=== PATIENT | female | born 1990 | race Caucasian/White ===

== ENCOUNTER 2019-03-05 19:18 | Emergency (ER) | payer OTHER ==
[~2019-03-05] VITALS: Ht 170.2 cm; Wt 122.5 kg
[~2019-03-05 19:18] MED LIST: ACET325 PO; ALBU90I INH; ALBU90OI INH; ALBU90OI61 INH; ALPR.5; ALPR1 PO; AMOCLA875 PO; AMOX500 PO; ANTOXYBENA BOTHEARS; AZIT250 PO; BENZ100A PO; BUPR150T2 PO; CEFP200 PO; CEPH500 PO; CHOL10002 PO; CIPR500 PO; CIPRSO AD; CLIN150 PO; CLIN300 PO; CODGUAEL PO; Cipro500 MG PO; Ciprodex Otic7.5 ML BOTHEARS; DULOXETINE HCL20 MG PO; ENOX120I SQ; ERYT.5TO OD; FLUT.05NI; FOLI1 PO; GABA300 PO; HYDACE10 PO; HYDACE10B PO; HYDACE5 PO; HYDR1TAB94 PO; IBUP200 PO; IBUP400 PO; IBUP600 PO; IBUP800 PO; LEVFLO500 PO; LORA1 PO; MECL25 PO; MEDR150I IM; META800 PO; METO10 PO; NEOPOLHCSU OT; OMEP20ER PO; ONDA4 PO; ONDA4ODT MM; ONDA8ODT MM; OXYACE5T PO; PARO20 PO; PARO30 PO; PENVK250 PO; PENVK500 PO; PHENA100 PO; PHENA200 PO; PRED20 PO; PREN-16 PO; PROACE100 PO; PROC10 PO; PROCODE120 PO; PROM25 PO; PSEU30 PO; Pepcid40 MG PO; Pyridium200 MG PO; RANI150 PO; RXALBOI INH; RXCLIN PO; RXHYD5325 PO; RXHYDACE PO; RXNEOPOLHC AD; RXONDA4ODT MM; RXOXYACE PO; RXPROCODSY PO; RXPROM25 PO; RXPROM25S PR; SULI200 PO; SULTRIDS PO; TRAM50; TRAM50 PO; TRAZ100 PO; Ultram50 MG PO; VENL37.5ER PO; Xanax0.5 MG PO; Zofran Odt4 MG SL; Zofran Odt8 MG SL; Zofran4 MG PO; [UNRECOGNIZED DRUG - REMARK]
[2019-03-05] MEDS ORDERED: HYDR1TAB94 PO (20:42)
== END 2019-03-05 21:03 | disposition home or self-care (01) ==
LOC: ER 19:18
DX: S62.525A Nondisplaced fracture of distal phalanx of left thumb, initial encounter for closed fracture (principal); W22.8XXA Striking against or struck by other objects, initial encounter; Z88.8 Allergy status to other drugs, medicaments and biological substances; Z88.0 Allergy status to penicillin; Z79.899 Other long term (current) drug therapy
CPT/HCPCS: 29125; 73130; 99283-25; A9270

== ENCOUNTER 2019-03-25 21:10 | Emergency (ER) | payer OTHER ==
[~2019-03-25] VITALS: Ht 165.1 cm; Wt 117.9 kg
[2019-03-26] MEDS ORDERED: Norco 5-325 Ta1 EACH PO (00:39)
== END 2019-03-26 01:15 | disposition home or self-care (01) ==
LOC: ER 21:10
DX: S62.522D Displaced fracture of distal phalanx of left thumb, subsequent encounter for fracture with routine healing (principal); X58.XXXD Exposure to other specified factors, subsequent encounter; Z88.8 Allergy status to other drugs, medicaments and biological substances; Z88.0 Allergy status to penicillin; Z79.899 Other long term (current) drug therapy
CPT/HCPCS: 29125; 73140; 96372-59; 99283-25; A9270; J1885

== ENCOUNTER → 2020-05-16 | Outpatient (CLI) | payer OTHER ==
[~2020-05-16] MED LIST changes: +Norco 5-325 Ta1 EACH PO
== END ==
LOC: LAB SRC 13:45 → LAB SHORT 13:45 → LAB 13:45
DX: H60.91 Unspecified otitis externa, right ear (principal); H62.41 Otitis externa in other diseases classified elsewhere, right ear; B36.9 Superficial mycosis, unspecified
CPT/HCPCS: 87070; 87205

== ENCOUNTER 2021-11-18 16:54 | Emergency (ER) | payer OTHER ==
[~2021-11-18] VITALS: Ht 165.1 cm; Wt 136.1 kg
[2021-11-18] MEDS ORDERED: BUPRENORPHN-NA1 EAC2 SL (17:05)
[2021-11-18] MEDS ORDERED: IBU800 M1 PO (17:05)
[2021-11-18] MEDS ORDERED: CRUTCH4 XX (19:59)
[2021-11-18 21:32] LABS: Influenza A, PCR NEGATIVE (NEGATIVE); Influenza B, PCR NEGATIVE (NEGATIVE); Resp Syncytial Virus, PCR NEGATIVE (NEGATIVE); SARS-Cov-2 (COVID-19) PCR, MMC NEGATIVE (NEGATIVE)
== END 2021-11-18 20:27 | disposition home or self-care (01) ==
LOC: ER 16:54
PROVIDERS: Physician Assistant
DX: S82.891A Other fracture of right lower leg, initial encounter for closed fracture (principal); S82.831A Other fracture of upper and lower end of right fibula, initial encounter for closed fracture; Z88.8 Allergy status to other drugs, medicaments and biological substances; Z79.899 Other long term (current) drug therapy; W18.30XA Fall on same level, unspecified, initial encounter
CPT/HCPCS: 0241U; 27810; 36415; 73590; 73600; 73610; 73700; 96374-59; 99152; 99284-25; A9270; J1885; J2405; J2704; J7030

== ENCOUNTER 2021-11-24 13:35 | Day surgery (SDC) | payer OTHER ==
[~2021-11-24] VITALS: Ht 165.1 cm; Wt 136.3 kg
[~2021-11-24 13:35] MED LIST changes: +BUPRENORPHN-NA1 EAC2 SL; +CRUTCH4 XX; +IBU800 M1 PO
[2021-11-24] MEDS ORDERED: OXYC5 (13:58)
--- NOTE | 2021-11-24 15:05 | NUR ---
11/24/21 1505 Leonard Anderson 0.15MG EPI ADDED TO 30 ML'S 0.5% BUPIVACAINE TO ACHIEVE SOLUTION OF 1:200,000.
== END 2021-11-24 17:00 | disposition home or self-care (01) ==
LOC: ORSCSDS 13:35
PROVIDERS: Podiatrist Foot & Ankle Surgery
PROC: 0QSJ04Z Reposition Right Fibula with Internal Fixation Device, Open Approach (ICD-10-PCS; principal; 2021-11-24 15:30)
PROC: 0MQQ0ZZ Repair Right Ankle Bursa and Ligament, Open Approach (ICD-10-PCS; principal; 2021-11-24 15:30)
PROC: 0SSF04Z Reposition Right Ankle Joint with Internal Fixation Device, Open Approach (ICD-10-PCS; principal; 2021-11-24 15:30)
DX: S82.61XA Displaced fracture of lateral malleolus of right fibula, initial encounter for closed fracture (principal); S93.421A Sprain of deltoid ligament of right ankle, initial encounter; S93.431A Sprain of tibiofibular ligament of right ankle, initial encounter; Z79.899 Other long term (current) drug therapy; K21.9 Gastro-esophageal reflux disease without esophagitis; E66.01 Morbid (severe) obesity due to excess calories; Z68.42 Body mass index [BMI] 45.0-49.9, adult
CPT/HCPCS: C1713; C1776; J0171; J0690; J1100; J1885; J2250; J2405; J2704; J3010; J7120